=== PATIENT | female | born 1950 | race Caucasian/White ===

== ENCOUNTER → 2017-04-15 | Outpatient (CLI) | payer MEDICARE, OTHER ==
[~2017-04-15] MED LIST: BACTRIM DS 8001 TAB PO; FOSAMAX PO; PREMARIN0.625 MG PO; PROTONIX40 MG/Pack PO
== END ==
LOC: COL.PUL 04-03 11:20
DX: R06.09 Other forms of dyspnea (principal); Z87.891 Personal history of nicotine dependence

== ENCOUNTER → 2017-04-24 | Outpatient (CLI) | payer MEDICARE, OTHER | LOC: MC.RAD 14:40 | DX: Z12.31 Encounter for screening mammogram for malignant neoplasm of breast (principal) ==

== ENCOUNTER → 2018-06-29 | Outpatient (CLI) | payer MEDICARE, OTHER | LOC: MC.RAD 05-15 14:00 | DX: Z12.31 Encounter for screening mammogram for malignant neoplasm of breast (principal) ==

== ENCOUNTER → 2019-09-09 | Outpatient (CLI) | payer MEDICARE | LOC: COL.RAD 14:29 | DX: E04.2 Nontoxic multinodular goiter (principal) ==

== ENCOUNTER 2020-04-27 08:31 | Day surgery (SDC) | payer MEDICARE ==
[~2020-04-27] VITALS: Ht 162.6 cm; Wt 74.7 kg
[2020-04-27 08:45] VITALS: BP 139/84; PULSE 83; TEMP 97.6
[2020-04-27] MEDS ORDERED: PROTONIX 40MG T40 MG PO (09:04)
[2020-04-27 10:40] VITALS: BP 144/74; PULSE 67; TEMP 97.6
--- NOTE | 2020-04-27 10:40 | NUR ---
TO RM 5 PER CART FROM ENDOSCOPY. ALERT ORIENTED X3, TALKING WITH STAFF. DR XAVIER TALKED WITH PATIENT IN PROCEDURE RM, BEFORE PATIENT RETURNED TO RM. AMBULATED TO RECLINER WITH ASSIST AND TOLERATED WELL. RECEIVED MUFFIN AND COFFEE.
[2020-04-27 10:55] VITALS: BP 105/82; PULSE 70
--- NOTE | 2020-04-27 10:55 | NUR ---
ATE 100% AND TOLERATED WELL.
--- NOTE | 2020-04-27 11:05 | NUR ---
RECEIVED DISCHARGE INSTRUCTIONS AND VERBALIZED UNDERSTANDING. DISCONTINUED IV AND INT- CATHETER INTACT.
--- NOTE | 2020-04-27 11:15 | NUR ---
PATIENT CALLED FOR RIDE. DRESSED AND AMBULATED TO BATHROOM.
--- NOTE | 2020-04-27 11:30 | NUR ---
WAITING FOR RIDE.
--- NOTE | 2020-04-27 11:43 | NUR ---
PATIENT DISCHARGED PER WC BY NURSING STAFF TO PRIVATE CAR IN CARE OF FRIEND TERESA.
== END 2020-04-27 11:44 | disposition home or self-care (01) ==
LOC: SDCO 08:31
DX: Z12.11 Encounter for screening for malignant neoplasm of colon (principal); D12.4 Benign neoplasm of descending colon; D12.5 Benign neoplasm of sigmoid colon; Z86.010 Personal history of colon polyps; Z80.0 Family history of malignant neoplasm of digestive organs; K57.30 Diverticulosis of large intestine without perforation or abscess without bleeding; K21.9 Gastro-esophageal reflux disease without esophagitis; Z90.710 Acquired absence of both cervix and uterus; Z87.891 Personal history of nicotine dependence; Z88.6 Allergy status to analgesic agent; Z88.1 Allergy status to other antibiotic agents; Z79.899 Other long term (current) drug therapy; Z20.828 Contact with and (suspected) exposure to other viral communicable diseases
CPT/HCPCS: J2704; J7030

== ENCOUNTER → 2022-04-25 | Outpatient (CLI) | payer MEDICARE ==
[~2022-04-25] MED LIST changes: +PROTONIX 40MG T40 MG PO
== END ==
LOC: COL.RAD 04-15 16:00
DX: K21.9 Gastro-esophageal reflux disease without esophagitis (principal); R13.10 Dysphagia, unspecified; R11.10 Vomiting, unspecified

== ENCOUNTER → 2022-11-01 | Outpatient (CLI) | payer MEDICARE | LOC: COL.RAD 14:34 | DX: Z12.2 Encounter for screening for malignant neoplasm of respiratory organs (principal); Z87.891 Personal history of nicotine dependence ==